=== PATIENT | female | born 1980 | race Asian ===

== ENCOUNTER 2019-06-09 20:47 | Emergency (ER) | payer OTHER, BC ==
[~2019-06-09] VITALS: Ht 154.9 cm; Wt 63.5 kg
[2019-06-09 20:55] VITALS: BP_SYST 141
[2019-06-09 22:48] VITALS: BP_SYST 139
== END 2019-06-09 22:47 | disposition home or self-care (01) ==
LOC: SED 20:47
DX: S13.9XXA Sprain of joints and ligaments of unspecified parts of neck, initial encounter (principal); S33.5XXA Sprain of ligaments of lumbar spine, initial encounter; M25.512 Pain in left shoulder; I10 Essential (primary) hypertension; G43.909 Migraine, unspecified, not intractable, without status migrainosus; V49.88XA Car occupant (driver) (passenger) injured in other specified transport accidents, initial encounter; Y93.89 Activity, other specified; Y92.89 Other specified places as the place of occurrence of the external cause; Y99.8 Other external cause status
CPT/HCPCS: 81025; 99283